=== PATIENT | female | born 1950 | race Hispanic/Latino ===

== ENCOUNTER 2019-01-13 09:55 | Outpatient (CLI) | payer MEDICARE, MEDICAID | END 2019-01-13 09:56 | disposition home or self-care (01) | LOC: LAB 09:56 ==

== ENCOUNTER 2019-01-26 10:08 | Outpatient (CLI) | payer MEDICARE, MEDICAID | END 2019-01-26 10:09 | disposition home or self-care (01) | LOC: RAD 10:08 ==